=== PATIENT | male | born 1995 | race Native Hawaiian/Other Pacific Islander ===

== ENCOUNTER 2024-05-11 11:57 | Emergency (ER) | payer OTHER ==
[~2024-05-11] VITALS: Ht 165.1 cm; Wt 76.0 kg
[2024-05-11] MEDS ORDERED: IBUP200C25 PO (12:11)
[2024-05-11 15:10] VITALS: BP 135/61; TEMP 97.9; O2SAT 98
== END 2024-05-11 15:11 | disposition home or self-care (01) ==
LOC: M ED 11:57
DX: S93.401A Sprain of unspecified ligament of right ankle, initial encounter (principal); X50.0XXA Overexertion from strenuous movement or load, initial encounter; Y92.9 Unspecified place or not applicable; Y93.66 Activity, soccer; Y99.9 Unspecified external cause status; Z79.1 Long term (current) use of non-steroidal anti-inflammatories (NSAID)